=== PATIENT | male | born 1965 | race Caucasian/White ===

== ENCOUNTER 2018-04-10 07:31 | Day surgery (SDC) | payer BC, OTHER ==
[2018-04-09 17:32] VITALS: BMI 29.9
[2018-04-10] MEDS ORDERED: BUPIVACAINE HCL/PF 0.5% (5MG/ML) 10 ML VIAL ONE (09:16)
[2018-04-10] MEDS ORDERED: LIDOCAINE 1%/EPI 1:100000 (20 ML MULTI DOSE VIAL) ONE (09:18)
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
[2018-04-10] MEDS ORDERED: LIDOCAINE HCL/PF 2% SDV 5ML VIAL ONE (10:03)
[2018-04-10] MEDS ORDERED: PROPOFOL 20 ML ONE ×2 (10:03)
[2018-04-10] MEDS ORDERED: ceFAZolin SODIUM 1 GM VIAL IVPB ONE (10:13)
[2018-04-10] MEDS ORDERED: BUPIVACAINE HCL/PF (5 MG/ML) 30 ML VIAL IJ ONE (10:38)
[2018-04-10] MEDS ORDERED: MIDAZOLAM HCL 2 MG/2 ML SINGLE DOSE VIAL ONE (10:38)
[2018-04-10] MEDS ORDERED: ONDANSETRON 4 MG/2 ML VIAL IVPUSH PRN (10:49)
[2018-04-10] MEDS ORDERED: PROMETHAZINE HCL 25 MG/1 ML VIAL IVPUSH PRN (10:49)
[2018-04-10] MEDS ORDERED: oxyCODONE HCL 5 MG TABLET PO PRN (10:49)
--- NOTE | 2018-04-10 10:52 | OP ---
Operative Note - Note: Operative Date: 04/10/18 Pre-Operative Diagnosis: left knee pain, MM tear Operation: left knee arthroscopy, partial medial meniscectomy Post-Operative Diagnosis: Same as Pre-op Surgeon: Socrates Mukherjee Copy Worker: Ricky Hendrickson Anesthesiologist/SUPERVISOR SCRAP PREPARATION: Juanpablo Hernandez Anesthesia: General, Local Specimens Removed: shavings Estimated Blood Loss (mls): 0 Drains, Volume Out (mls): 0 Blood Volume Replaced (mls): 0 Fluid Volume Replaced (mls): 500 Operative Report Dictated: Yes
[2018-04-10] MEDS ORDERED: LACTATED RINGERS SOLUTION 1,000 ML IV SCH (11:00)
[2018-04-10] MEDS ORDERED: oxyCODONE HCL 5 MG TABLET ONE (11:58)
[2018-04-10 13:10] VITALS: BP 138/80; TEMP 98.5
[2018-04-10 13:21] VITALS: PULSE 89
--- NOTE | 2018-04-10 13:37 | OP ---
DATE OF OPERATION: 04/10/2018 PREOPERATIVE DIAGNOSIS: Left knee pain, medial meniscus tear. POSTOPERATIVE DIAGNOSIS: Left knee pain, medial meniscus tear. PROCEDURE: Left knee arthroscopy, partial medial meniscectomy. SURGEON: Lorraine Mukherjee MD OFFICE MAIL CLERK: Ricky Hendrickson MD ANESTHESIOLOGIST: Juanpablo Hernandez MD DRAINS: None. COMPLICATIONS: None. SPECIMEN: Arthroscopic shavings. BLOOD LOSS: Minimal. BLOOD GIVEN: None. FLUID REPLACEMENT: 500 mL. This patient is a 52-year-old male with a preoperative diagnosis of recurrent left knee pain and recurrent left knee medial meniscus tear. After understanding the potential risks and complications, alternatives, benefits, surgical versus nonsurgical treatment, the patient elected to undergo this procedure. The patient was brought to the operating room. Peripheral IV placed, IV sedation given. IV Ancef was given. LMA anesthesia was induced. His left lower extremity was put into the C-clamp leg selby with ample padding throughout including the Styrofoam rim. Limb was prepped and draped in sterile fashion, elevated, exsanguinated with Esmarch bandage, tourniquet inflated to 275 mmHg. A superior medial outflow portal was established. Lateral portal was established. Arthroscope was introduced into the joint. Under direct visualization the diagnostic left knee arthroscopy was performed. In the medial compartment, the patient's medial femoral condyle and medial tibial plateau both looked good. There was no arthritis. The patient did have a radial flap tear of the junction of the body posterior horn of the medial meniscus. It was probed. An additional part of the flap was able to be brought out into the joint and photographs were taken. Using a combination of the left biter forceps and the curved shaver, we did a partial medial meniscectomy. The tear did disrupt the vast majority of the hoop fibers, probably 85% as the tear went almost all the way to the periphery. Once the medial meniscectomy was completed, additional photographs were taken. Our attention turned to the intercondylar notch which looked good. The ACL was probed, it had the appropriate tension. Next, we looked at the lateral compartment. The patient had some grade 1 chondromalacia of the lateral femoral condyle. Photographs were taken. The patient was seen to have some fissuring and small cracking of the lateral tibial plateau. The patient also had what looked to be either evidence of a previous lateral meniscectomy or small meniscus in the area of the popliteal hiatus. Either way, no lateral meniscectomy was needed. Next, we attempted to return to the patellofemoral joint, which overall looked good. There were grade 1 changes of the femoral trochlea, but otherwise things looked good. The scope was irrigated and washed out , all excess saline removed. The arthroscopy portals were closed with 3-0 nylon sutures. The area was then washed and dried, covered with Xeroform, 4x4 gauze, Webril, Chris bandage. The tourniquet was taken down with a total tourniquet time of 18 minutes. There were no complications during the case. The patient tolerated the procedure quite well and was brought to the ambulatory recovery room in stable condition. Ricky Hendrickson MD dictating for MD LORRAINE Falk M.D. [id number]
--- NOTE | 2018-04-11 15:54 | PATH ---
Surgical Pathology Report Patient Name: SHASHANK MCKOY [facility]. Rec. #: [id number] /Age/Gender: 1965 (Age: 52) / M Account: [id number] Location: [facility] SURGICAL Taken: 04/10/2018 Received: 04/10/2018 Reported: 04/11/2018 Physicians: Jose Murray M.D. Specimen(s) Received LEFT KNEE SHAVINGS Clinical History Internal derangement left knee Final Diagnosis KNEE, LEFT, ARTHROSCOPIC SHAVINGS: FIBROSYNOVIAL TISSUE AND CARTILAGE. Electronically Signed Lou Alba M.D. Gross Description Received in formalin, labeled "left knee shavings," is a 4.0 x 3.0 x 0.3 cm. aggregate of levy-yellow soft tissue fragments. 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 /04/10/2018 saudi/04/10/2018
== END 2018-04-10 13:20 | disposition home or self-care (01) ==
LOC: JASU-SURG 07:31
PROVIDERS: ATTEND Orthopaedic Surgery
PROC: 0SBD4ZZ Excision of Left Knee Joint, Percutaneous Endoscopic Approach (ICD-10-PCS; principal; 2018-04-10 09:30)
DX: S83.242A Other tear of medial meniscus, current injury, left knee, initial encounter (principal); X58.XXXA Exposure to other specified factors, initial encounter; Y93.9 Activity, unspecified; Y92.9 Unspecified place or not applicable; Y99.9 Unspecified external cause status
CPT/HCPCS: 88304-TC; 94760; 97116-GP

== ENCOUNTER 2018-04-16 17:39 | Emergency (ER) | payer BC, OTHER ==
--- NOTE | 2018-04-16 18:05 | PDOC ---
Rapid Medical Evaluation Time Seen by Provider: 04/16/18 17:57 Medical Evaluation: Allergies Allergy/AdvReac Type Severity Reaction Status Date / Time No Known Allergies Allergy Verified 04/10/18 08:11 04/16/18 17:57 Pt. is a 52 y/o M who presents to the ED for redness and pain to his L leg. Pt s /p arthroscopic meniscus repair on the L side performed by Dr. Hendrickson. Took percocet with no relief of pain Exam: Redness and warm to L inner thigh, L posterior calf, L ankle. Swollen L ankle. Bruising vs cellulitis? Surgical site without redness or swelling Orders: Labs, IV insert, tylenol Pt to proceed to ED for further evaluation Discharge Disposition - Diagnosis Redness of skin - Referrals - Patient Instructions - Post Discharge Activity
[2018-04-16 18:06] VITALS: BMI 30.7
[2018-04-16] MEDS ORDERED: ACETAMINOPHEN 325 MG TABLET (FP) PO ONE (18:06)
[2018-04-16] MEDS ORDERED: ACETAMINOPHEN 325 MG TABLET (FP) ONE (18:30)
[2018-04-16 19:04] LABS: URINE APPEARANCE CLEAR; URINE BILIRUBIN NEGATIVE (<2.0 mg/dL); URINE COLOR YELLOW; URINE GLUCOSE (UA) NEGATIVE (NEGATIVE); URINE KETONE NEGATIVE (NEGATIVE); URINE LEUK ESTERASE NEGATIVE (NEGATIVE); URINE NITRITE NEGATIVE (NEGATIVE); URINE PROTEIN NEGATIVE (NEGATIVE)
[2018-04-16 19:08] LABS: BASO % 0.9 % (0-2.0); EOS % 2.8 % (0-4.5); HEMATOCRIT 53.7 % (35.4-49); HEMOGLOBIN 17.7 GM/dL (11.7-16.9); LYMPH % 24.6 % (8-40); MCHC 32.9 g/dl (32.0-35.9); MEAN PLT VOLUME 9.5 fl (7.5-11.1); MONO % 12.4 % (3.8-10.2); NEUT % 59.3 % (42.8-82.8); PLATELET COUNT 275 K/MM3 (134-434); RDW 15.3 % (11.9-15.9); WHITE BLOOD COUNT 8.4 K/mm3 (4.0-10.0)
[2018-04-16 19:09] LABS: EPI CELLS RARE /HPF (FEW); URINE MUCUS RARE
[2018-04-16 19:24] LABS: INR 0.99 (0.82-1.09); PROTHROMBIN TIME (PATIENT) 11.2 SEC (9.7-13.0)
--- NOTE | 2018-04-16 19:28 | PDOC ---
History of Present Illness - General Chief Complaint: Pain, Acute Stated Complaint: PAIN Time Seen by Provider: 04/16/18 17:57 History Source: Patient - History of Present Illness Initial Comments: 04/16/18 20:12 52 year old male Status post left knee arthroscopy on 04/10/18. 3 days after surgery patient noted to have ecchymosis to left upper thigh and lower leg with increasing edema. Patient reports that the knee pain has gotten worse over the course of days. Patient has been taking Percocet, currently with minimal relief in pain. Patient is an orthopedic appointment days. Currently not on physical therapy. denies numbness and tingling in the lower extremity. 04/16/18 20:51 Past History - Past Medical History Allergies/Adverse Reactions: Allergies Allergy/AdvReac Type Severity Reaction Status Date / Time No Known Allergies Allergy Verified 04/16/18 18:01 Home Medications: Ambulatory Orders Sildenafil Citrate [Viagra] 50 mg PO DAILY PRN 04/09/18 Hydrocodone/Acetaminophen [[place] 5-325 Tablet] 1 each PO Q6H PRN #20 tablet MDD 4 04/10/18 Anemia: No Asthma: Yes (DX CHILD, seasonal) Cancer: No Cardiac Disorders: No CVA: No COPD: No CHF: No Dementia: No Diabetes: No GI Disorders: Yes (PANCREATITIS-CHRONIC) Disorders: No HTN: No Hypercholesterolemia: Yes (DX- 2013) Liver Disease: No Seizures: No Thyroid Disease: No - Surgical History Abdominal Surgery: No Appendectomy: No Cardiac Surgery: No Cholecystectomy: No Lung Surgery: No Neurologic Surgery: No Orthopedic Surgery: Yes (BILATERAL KNEE ARTHROSCOPY-1996) - Immunization History Td Vaccination: Yes Immunization Up to Date: Yes - Suicide/Smoking/Psychosocial Hx Smoking Status: Yes Smoking History: Never smoked Years of Tobacco Use: 0 Have you smoked in the past 12 months: No Number of Cigarettes Smoked Daily: 0 If you are a former smoker, when did you quit?: 2006 Cigars Per Day: 0 Information on smoking cessation initiated: No Hx Alcohol Use: No Drug/Substance Use Hx: No Substance Use Type: None Hx Substance Use Treatment: No Review of Systems - Review of Systems Able to Perform ROS?: Yes Is the patient limited Filipino proficient: No Integumentary: Yes: Bruising (31and), Other (edema) *Physical Exam - Vital Signs Last Vital Signs Temp Pulse Resp BP Pulse Ox 98.6 F 99 H 17 165/87 97 04/16/18 18:02 04/16/18 18:02 04/16/18 18:02 04/16/18 18:02 04/16/18 18:02 - Physical Exam General Appearance: Yes: Appropriately Dressed Respiratory/Chest: positive: Lungs Clear, Normal Breath Sounds Extremity: positive: Pedal Edema (left lower extremity extensive ecchymosis with lower extremity edema. surgical site clean and intact), Other (+ peda1l pulse) Integumentary: positive: Normal Color, Warm Neurologic: positive: Fully Oriented, Alert ED Treatment Course - LABORATORY CBC & Chemistry Diagram: 04/16/18 18:39 04/16/18 18:39 - ADDITIONAL ORDERS Additional order review: Laboratory Results 04/16/18 18:20 Urine Color Yellow Urine Appearance Clear Urine pH 6.0 Ur Specific [place] 1.023 Urine Protein Negative Urine Glucose (UA) Negative Urine Ketones Negative Urine Blood 1+ H Urine Nitrite Negative Urine Bilirubin Negative Urine Urobilinogen 2.0 Ur Leukocyte Esterase Negative Urine WBC (Auto) 1 Urine RBC (Auto) 3 Ur Epithelial Cells Rare Urine Mucus Rare 04/16/18 18:39 RBC 6.10 H MCV 88.0 MCHC 32.9 RDW 15.3 D MPV 9.5 Neutrophils % 59.3 Lymphocytes % 24.6 D Monocytes % 12.4 H Eosinophils % 2.8 Basophils % 0.9 - Medications Given in the ED: ED Medications Discontinued Medications Generic Name Dose Route Start Last Admin Trade Name Freq PRN Reason Stop Dose Admin Acetaminophen 975 mg 04/16/18 18:06 04/16/18 18:32 Tylenol - PO 04/16/18 18:07 975 mg ONCE ONE Administration Progress Note - Progress Note Progress Note: A: Left knee post surgical pain P: US: negative for DVT pain control labs outpatient ortho follow up *DC/Admit/Observation/Transfer Diagnosis at time of Disposition: Traumatic ecchymosis of knee Qualifiers: Encounter type: initial encounter Laterality: left Qualified Code(s): S80.02XA - Contusion of left knee, initial encounter Knee pain, acute Qualifiers: Laterality: left Qualified Code(s): M25.562 - Pain in left knee - Discharge Dispostion Disposition: HOME - Referrals Referrals: Melinda Cabral MD [Primary Care Provider] - Socrates Mukherjee MD [Staff Physician] - Call tomorrow - Patient Instructions Additional Instructions: apply ice/ heat to the Area take percocet as prescribed. follow up with Dr. Mukherjee tomorrow. - Post Discharge Activity Forms/Work/School Notes: Back to Work
[2018-04-16 19:35] LABS: ALBUMIN 4.1 g/dl (3.4-5.0); ALK PHOS 80 U/L (45-117); ANION GAP 9 (8-16); BILIRUBIN,TOTAL 0.7 mg/dL (0.2-1.0); BLOOD UREA NITROGEN 20 mg/dL (7-18); CALCIUM 9.3 mg/dL (8.5-10.1); CHLORIDE 104 mmol/L (98-107); CO2 26 mmol/L (21-32); CREATININE 1.8 mg/dL (0.7-1.3); GLUCOSE,RANDOM 75 mg/dL (74-106); SGPT/ALT 42 U/L (12-78); SODIUM 139 mmol/L (136-145)
[2018-04-16 19:38] LABS: POTASSIUM 4.7 mmol/L (3.5-5.1); SGOT/AST 54 U/L (15-37)
[2018-04-16] MEDS ORDERED: KETOROLAC TROMETHAMINE 30 MG/1 ML VIAL IM ONE (20:04)
[2018-04-16] MEDS ORDERED: KETOROLAC TROMETHAMINE 30 MG/1 ML VIAL ONE (20:05)
--- NOTE | 2018-04-16 20:07 | PDOC ---
*Physical Exam - Vital Signs Last Vital Signs Temp Pulse Resp BP Pulse Ox 98.6 F 99 H 17 165/87 97 04/16/18 18:02 04/16/18 18:02 04/16/18 18:02 04/16/18 18:02 04/16/18 18:02 ED Treatment Course - LABORATORY CBC & Chemistry Diagram: 04/16/18 18:39 04/16/18 18:39 - ADDITIONAL ORDERS Additional order review: Laboratory Results 04/16/18 04/16/18 18:39 18:20 Sodium 139 Potassium 4.7 Chloride 104 Carbon Dioxide 26 Anion Gap 9 BUN 20 H Creatinine 1.8 H Creat Clearance w eGFR 39.52 Random Glucose 75 D Calcium 9.3 Total Bilirubin 0.7 AST 54 H D ALT 42 D Alkaline Phosphatase 80 Total Protein 8.0 Albumin 4.1 Urine Color Yellow Urine Appearance Clear Urine pH 6.0 Ur Specific [place] 1.023 Urine Protein Negative Urine Glucose (UA) Negative Urine Ketones Negative Urine Blood 1+ H Urine Nitrite Negative Urine Bilirubin Negative Urine Urobilinogen 2.0 Ur Leukocyte Esterase Negative Urine WBC (Auto) 1 Urine RBC (Auto) 3 Ur Epithelial Cells Rare Urine Mucus Rare 04/16/18 18:39 RBC 6.10 H MCV 88.0 MCHC 32.9 RDW 15.3 D MPV 9.5 Neutrophils % 59.3 Lymphocytes % 24.6 D Monocytes % 12.4 H Eosinophils % 2.8 Basophils % 0.9 - RADIOLOGY Radiology Studies Ordered: Category Date Time Status DUPLEX VASCUL US-1 LEG [US] Stat Ultrasound 04/16/18 19:20 Completed - Medications Given in the ED: ED Medications Discontinued Medications Generic Name Dose Route Start Last Admin Trade Name Epi PRN Reason Stop Dose Admin Acetaminophen 975 mg 04/16/18 18:06 04/16/18 18:32 Tylenol - PO 04/16/18 18:07 975 mg ONCE ONE Administration Medical Decision Making - Medical Decision Making 04/16/18 20:07 agree with care from JOHNNY Aguilar *DC/Admit/Observation/Transfer Diagnosis at time of Disposition: Redness of skin - Referrals Referrals: Melinda Cabral MD [Primary Care Provider] - - Patient Instructions - Post Discharge Activity
[2018-04-16] MEDS ORDERED: CODEINE SO4 30 MG TABLET PO ONE (20:12)
[2018-04-16] MEDS ORDERED: KETOROLAC TROMETHAMINE 30 MG/1 ML VIAL IVPUSH ONE (20:13)
[2018-04-16] MEDS ORDERED: CODEINE SO4 30 MG TABLET ONE (20:25)
[2018-04-16 21:02] VITALS: BP 149/89; PULSE 87; TEMP 98.9
== END 2018-04-16 21:00 | disposition home or self-care (01) ==
LOC: JER 17:39
PROC: 3E0333Z Introduction of Anti-inflammatory into Peripheral Vein, Percutaneous Approach (ICD-10-PCS; principal; 2018-04-16)
DX: M25.562 Pain in left knee (principal); S80.02XA Contusion of left knee, initial encounter; Z87.891 Personal history of nicotine dependence; J45.909 Unspecified asthma, uncomplicated; E78.00 Pure hypercholesterolemia, unspecified
CPT/HCPCS: 36415; 80053; 81003; 81015; 85025; 85610; 87040; 93971-TC; 99284-25

== ENCOUNTER 2019-04-04 12:53 | Emergency (ER) | payer BC, OTHER | END 2019-04-04 15:24 | disposition home or self-care (01) | LOC: JERFT 12:53 ==

== ENCOUNTER 2019-09-25 13:47 | Emergency (ER) | payer BC, OTHER ==
[2019-09-25 14:05] VITALS: BP 135/84; PULSE 79; TEMP 99.1; BMI 30.4
[2019-09-25] MEDS ORDERED: predniSONE 20 MG TABLET (UD) PO ONE (14:28)
[2019-09-25] MEDS ORDERED: ALBUTEROL SO4 2.5/IPRATROPIUM 0.5 INH SOL 3 ML VIAL.NEB. NEB SCH (14:30)
--- NOTE | 2019-09-25 14:30 | PDOC ---
History of Present Illness - General Chief Complaint: Asthma Stated Complaint: ASTHMA Time Seen by Provider: 09/25/19 14:07 History Source: Patient Exam Limitations: No Limitations Past History - Past Medical History Allergies/Adverse Reactions: Allergies Allergy/AdvReac Type Severity Reaction Status Date / Time No Known Allergies Allergy Verified 09/25/19 14:01 Home Medications: Ambulatory Orders Sildenafil Citrate [Viagra] 50 mg PO DAILY PRN 04/09/18 Hydrocodone/Acetaminophen [[place] 5-325 Tablet] 1 each PO Q6H PRN #20 tablet MDD 4 04/10/18 Albuterol 0.083% Nebulizer Kimber [Ventolin 0.083% Nebulizer Soln -] 1 neb NEB Q4H PRN #30 vial 04/04/19 Nebulizer Accessories [Aeroneb Go] 1 each MC DAILY #1 each 04/04/19 Nebulizer [Aeroneb Go Nebulizer] 1 each MC DAILY #1 each 04/04/19 predniSONE [Deltasone] 40 mg PO DAILY #8 tablet 04/04/19 Albuterol 0.083% Nebulizer Kimber [Ventolin 0.083% Nebulizer Soln -] 1 neb NEB Q4H PRN #30 vial 09/25/19 Albuterol Sulfate Inhaler - [Ventolin HFA Inhaler -] 1 - 2 inh PO Q4H #1 inhaler 09/25/19 predniSONE [Deltasone -] 40 mg PO DAILY #8 tablet 09/25/19 Anemia: No Asthma: Yes (DX CHILD, seasonal) Cancer: No Cardiac Disorders: No CVA: No COPD: No CHF: No Dementia: No Diabetes: No GI Disorders: Yes (PANCREATITIS-CHRONIC) Disorders: No HTN: No Hypercholesterolemia: Yes (- 2013) Liver Disease: No Seizures: No Thyroid Disease: No - Surgical History Abdominal Surgery: No Appendectomy: No Cardiac Surgery: No Cholecystectomy: No Lung Surgery: No Neurologic Surgery: No Orthopedic Surgery: Yes (BILATERAL KNEE ARTHROSCOPY-1996) - Immunization History Td Vaccination: Yes Immunization Up to Date: Yes - Psycho Social/Smoking Cessation Hx Smoking Status: Yes Smoking History: Never smoked Years of Tobacco Use: 0 Have you smoked in the past 12 months: No Number of Cigarettes Smoked Daily: 0 If you are a former smoker, when did you quit?: 2005 Cigars Per Day: 0 Hx Alcohol Use: Yes Drug/Substance Use Hx: No Substance Use Type: None Hx Substance Use Treatment: No *Physical Exam - Vital Signs Last Vital Signs Temp Pulse Resp BP Pulse Ox 99.1 F 79 22 H 135/84 98 09/25/19 14:02 09/25/19 14:02 09/25/19 14:02 09/25/19 14:02 09/25/19 14:02 - Physical Exam General Appearance: No: Apparent Distress Respiratory/Chest: positive: Wheezing (B/L). negative: Respiratory Distress, Accessory Muscle Use, Labored Respiration Cardiovascular: positive: Regular Rhythm, Regular Rate, S1, S2. negative: Murmur Integumentary: positive: Normal Color Neurologic: positive: Alert Medical Decision Making - Medical Decision Making 53 y/o M with hx of asthma (never intubated, hospitalized once), HLD, pancreatitis presents with asthma exacerbation from 6 days ago. +dry cough, sob , chest tightness, wheezing. Ran out of his inhaler 2 days ago and could not come earlier due to work and other things he got caught up with. Also had a new nebulizer machine he bought a few months ago, but states his dog broke it accidentally around a month ago. States this feels like his typical asthma and usually gets precipitated from changes in weather. Also mentions subjective fever from yesterday, but did not check temperature. Took Tylenol this AM. Denies ear pain, throat pain, congestion, rhinorrhea, abd pain, n/v. Denies smoking cigarettes. Asthma exacerbation Plan: Duonebs, steroids, CXR 09/25/19 14:34 CXR negative Patient feeling much better on reassessment No wheezing noted on repeat exam, Stable for dc 09/25/19 15:52 Discharge - Discharge Information Problems reviewed: Yes Clinical Impression/Diagnosis: Asthma Qualifiers: Asthma severity: mild Asthma persistence: unspecified Asthma complication type : with acute exacerbation Qualified Code(s): J45.901 - Unspecified asthma with ( acute) exacerbation Condition: Improved Disposition: HOME - Admission No - Additional Discharge Information Prescriptions: Albuterol 0.083% Nebulizer Kimber [Ventolin 0.083% Nebulizer Soln -] 1 neb NEB Q4H PRN #30 vial PRN Reason: Shortness Of Breath Albuterol Sulfate Inhaler - [Ventolin HFA Inhaler -] 1 - 2 inh PO Q4H #1 inhaler predniSONE [Deltasone -] 40 mg PO DAILY #8 tablet Prescription Drug Monitoring Program (I-STOP) results: I-STOP not reviewed - Follow up/Referral Referrals: Melinda Cabral MD [Primary Care Provider] - 2 Days - Patient Discharge Instructions Patient Printed Discharge Instructions: DI for Asthma -- Adult Additional Instructions: Thank you for choosing [facility]. It was a pleasure taking care of you. Use the albuterol as needed for shortness of breath Take the steroids as prescribed (next dose is tomorrow) Follow-up with your doctor in 2 days Return to the Emergency Department if your symptoms worsen or persist or have other concerning symptoms. - Post Discharge Activity Work/Back to School Note: Back to Work
[2019-09-25] MEDS ORDERED: predniSONE 20 MG TABLET (UD) ONE (14:33)
[2019-09-25] MEDS ORDERED: ALBUTEROL SO4 2.5/IPRATROPIUM 0.5 INH SOL 3 ML VIAL.NEB. NEB ONE (15:33)
== END 2019-09-25 16:02 | disposition home or self-care (01) ==
LOC: JERFT 13:47
PROC: 3E0F7GC Introduction of Other Therapeutic Substance into Respiratory Tract, Via Natural or Artificial Opening (ICD-10-PCS; principal; 2019-09-25)
DX: J45.901 Unspecified asthma with (acute) exacerbation (principal); Z87.891 Personal history of nicotine dependence; K86.1 Other chronic pancreatitis; E78.00 Pure hypercholesterolemia, unspecified
CPT/HCPCS: 71046-TC-FY; 99281-25

== ENCOUNTER 2020-11-25 05:47 | Day surgery (SDC) | payer BC, OTHER ==
[2020-11-22 09:32] VITALS: BMI 28.8
[2020-11-25] MEDS ORDERED: LIDOCAINE 1%/EPI 1:100000 (20 ML MULTI DOSE VIAL) ONE (07:09)
[2020-11-25] MEDS ORDERED: PROPOFOL 20 ML ONE ×2 (07:38)
[2020-11-25] MEDS ORDERED: LIDOCAINE HCL/PF 2% SDV 5ML VIAL ONE (07:38)
[2020-11-25] MEDS ORDERED: MIDAZOLAM HCL 2 MG/2 ML SINGLE DOSE VIAL ONE (07:38)
[2020-11-25] MEDS ORDERED: fentaNYL CITRATE 250 MCG/5 ML VIAL ONE (07:38)
[2020-11-25] MEDS ORDERED: ceFAZolin SODIUM 1 GM VIAL ONE (08:20)
[2020-11-25] MEDS ORDERED: BUPIVACAINE HCL/PF 0.5% (5 MG/ML) 30 ML VIAL IJ ONE (08:53)
[2020-11-25] MEDS ORDERED: IBUPROFEN 800 MG/8 ML IJ IVPB PRN (09:09)
[2020-11-25] MEDS ORDERED: ONDANSETRON 4 MG/2 ML VIAL IVPUSH PRN (09:09)
[2020-11-25] MEDS ORDERED: oxyCODONE HCL 5 MG TABLET PO PRN (09:09)
[2020-11-25] MEDS ORDERED: LACTATED RINGERS SOLUTION 1,000 ML IV SCH (09:15)
[2020-11-25 10:45] VITALS: TEMP 98.5
[2020-11-25 11:49] VITALS: BP 119/68; PULSE 84
== END 2020-11-25 11:10 | disposition home or self-care (01) ==
LOC: FASU 05:47
PROVIDERS: ATTEND Orthopaedic Surgery
PROC: 0SBC4ZZ Excision of Right Knee Joint, Percutaneous Endoscopic Approach (ICD-10-PCS; principal; 2020-11-25 08:33)
DX: S83.241A Other tear of medial meniscus, current injury, right knee, initial encounter (principal); X58.XXXA Exposure to other specified factors, initial encounter; Y93.9 Activity, unspecified; Y92.9 Unspecified place or not applicable
CPT/HCPCS: 88304-TC; 94760

== ENCOUNTER 2021-09-29 05:56 | Day surgery (SDC) | payer BC, OTHER ==
[2021-09-28 12:10] VITALS: BMI 29.1
[2021-09-29] MEDS ORDERED: MIDAZOLAM HCL 2 MG/2 ML SINGLE DOSE VIAL ONE (06:55)
[2021-09-29] MEDS ORDERED: ROPIVACAINE HCL/PF 100 MG/20 ML VIAL ONE (06:55)
[2021-09-29] MEDS ORDERED: LIDOCAINE HCL/PF 2% SDV 5ML VIAL ONE (07:32)
[2021-09-29] MEDS ORDERED: PROPOFOL 20 ML ONE (07:32)
[2021-09-29] MEDS ORDERED: GLYCOPYRROLATE 0.2 MG/1 ML VIAL ONE (07:32)
[2021-09-29] MEDS ORDERED: ceFAZolin SODIUM 1 GM VIAL ONE (07:35)
[2021-09-29] MEDS ORDERED: SODIUM CHLORIDE 0.9% P/F 10 ML VIAL IJ ONE (07:35)
[2021-09-29] MEDS ORDERED: ONDANSETRON 4 MG/2 ML VIAL ONE (08:12)
[2021-09-29] MEDS ORDERED: DEXAMETHASONE SOD PHOSPHATE 4 MG/1 ML VIAL ONE (08:12)
[2021-09-29] MEDS ORDERED: PROMETHAZINE HCL 25 MG/1 ML VIAL IVPUSH PRN (09:47)
[2021-09-29] MEDS ORDERED: oxyCODONE HCL 5 MG TABLET PO PRN (09:47)
[2021-09-29] MEDS ORDERED: ONDANSETRON 4 MG/2 ML VIAL IVPUSH PRN (09:47)
[2021-09-29] MEDS ORDERED: LACTATED RINGERS SOLUTION 1,000 ML IV SCH (10:00)
[2021-09-29 11:58] VITALS: TEMP 98.2
[2021-09-29 12:04] VITALS: BP 133/81; PULSE 72
== END 2021-09-29 12:15 | disposition home or self-care (01) ==
LOC: FASU 05:56
PROVIDERS: ATTEND Orthopaedic Surgery
PROC: 0LQ10ZZ Repair Right Shoulder Tendon, Open Approach (ICD-10-PCS; principal; 2021-09-29 08:22)
PROC: 0RQJ4ZZ Repair Right Shoulder Joint, Percutaneous Endoscopic Approach (ICD-10-PCS; 2021-09-29 08:22)
PROC: 0RNJ4ZZ Release Right Shoulder Joint, Percutaneous Endoscopic Approach (ICD-10-PCS; 2021-09-29 08:22)
DX: M75.121 Complete rotator cuff tear or rupture of right shoulder, not specified as traumatic (principal); M75.41 Impingement syndrome of right shoulder; M24.111 Other articular cartilage disorders, right shoulder; M25.511 Pain in right shoulder
CPT/HCPCS: 94760

== ENCOUNTER 2022-08-21 04:50 | Emergency (ER) | payer BC, OTHER ==
[2022-08-21] MEDS ORDERED: KETOROLAC TROMETHAMINE 15 MG/ML VIAL IM ONE (05:09)
[2022-08-21 05:21] VITALS: BP 113/63; PULSE 95; RESP 20; TEMP 99.9; BMI 30.4
[2022-08-21] MEDS ORDERED: KETOROLAC TROMETHAMINE 15 MG/ML VIAL ONE (05:30)
== END 2022-08-21 06:38 | disposition home or self-care (01) ==
LOC: JER 04:50
PROC: 3E0233Z Introduction of Anti-inflammatory into Muscle, Percutaneous Approach (ICD-10-PCS; principal; 2022-08-21)
DX: R05.1 Acute cough (principal); M79.10 Myalgia, unspecified site; J06.9 Acute upper respiratory infection, unspecified
CPT/HCPCS: 0241U-QW; 71046-TC-FY; 99284-25

== ENCOUNTER 2022-08-26 06:04 | Emergency (ER) | payer BC, OTHER ==
[2022-08-26 06:10] VITALS: BP 132/82; PULSE 73; RESP 22; TEMP 98.4; BMI 30.7
[2022-08-26] MEDS ORDERED: DEXAMETHASONE SOD PHOSPHATE 10 MG/1 ML VIAL IVPUSH ONE (07:19)
[2022-08-26] MEDS ORDERED: predniSONE 20 MG TABLET (UD) PO ONE (07:24)
[2022-08-26] MEDS ORDERED: predniSONE 20 MG TABLET (UD) ONE (07:31)
[2022-08-26] MEDS: ALBUTEROL SO4 2.5/IPRATROPIUM 0.5 INH SOL 3 ML VIAL.NEB. NEB SCH (08:13)
== END 2022-08-26 08:00 | disposition home or self-care (01) ==
LOC: JER 06:04
PROC: 3E0F7GC Introduction of Other Therapeutic Substance into Respiratory Tract, Via Natural or Artificial Opening (ICD-10-PCS; principal; 2022-08-26)
DX: J45.901 Unspecified asthma with (acute) exacerbation (principal)
CPT/HCPCS: 99283-25

== ENCOUNTER 2023-10-22 19:39 | Emergency (ER) | payer BC, OTHER ==
[2023-10-22] MEDS ORDERED: ASPIRIN 81 MG CHEWABLE TABLETS PO ONE (19:48)
[2023-10-22 19:53] VITALS: PULSE 72; BMI 29.1
[2023-10-22] MEDS ORDERED: ASPIRIN 81 MG CHEWABLE TABLETS ONE (20:26)
[2023-10-22] MEDS ORDERED: ACETAMINOPHEN 1000 MG/100 ML BAG IVPB ONE (20:27)
[2023-10-22 20:47] LABS: BASO % 0.8 % (0-2.0); EOS % 6.9 % (0-4.5); HEMATOCRIT 52.1 % (35.4-49); HEMOGLOBIN 16.4 GM/dL (11.7-16.9); LYMPH % 28.6 % (8-40); MCH 26.9 pg (25.7-33.7); MCHC 31.5 g/dl (32.0-35.9); MEAN CELL VOLUME 85.5 fl (80-96); MEAN PLT VOLUME 8.4 fl (7.5-11.1); MONO % 10.5 % (3.8-10.2); NEUT % 53.2 % (42.8-82.8); PLATELET COUNT 283 10^3/uL (134-434); RBC 6.09 M/mm3 (4.00-5.60); RDW 16.5 % (11.9-15.9); WHITE BLOOD COUNT 8.5 K/mm3 (4.0-10.0)
[2023-10-22] MEDS ORDERED: ACETAMINOPHEN INJECTION 100 ML IVPB ONE (20:48)
[2023-10-22] MEDS ORDERED: ALBUTEROL SO4 2.5/IPRATROPIUM 0.5 INH SOL 3 ML VIAL.NEB. NEB ONE (20:48)
[2023-10-22 20:57] LABS: INR 0.95 (0.83-1.09)
[2023-10-22] MEDS: ALBUTEROL SO4 2.5/IPRATROPIUM 0.5 INH SOL 3 ML VIAL.NEB. NEB SCH ×3 (20:58→21:15)
[2023-10-22 21:00] LABS: ACTIVATED PTT 27.2 SECONDS (25.2-36.5)
[2023-10-22 21:10] LABS: POTASSIUM 5.8 mmol/L (3.5-5.1)
[2023-10-22 21:11] LABS: CALCIUM 9.6 mg/dL (8.5-10.1)
[2023-10-22 21:12] LABS: ALBUMIN 3.1 g/dl (3.4-5.0); MAGNESIUM 2.1 mg/dL (1.8-2.4)
[2023-10-22 21:15] LABS: CREATININE 1.5 mg/dL (0.55-1.3)
[2023-10-22 21:16] LABS: BILIRUBIN,TOTAL 0.6 mg/dL (0.2-1); TOT PROT 7.1 g/dl (6.4-8.2)
[2023-10-22] MEDS ORDERED: SODIUM CHLORIDE 0.9% 500 ML INFUS.BAG IV ONE (22:15)
[2023-10-22] MEDS ORDERED: FAMOTIDINE 20 MG/50 ML IVPB 20 MG/50 ML MG IVPB ONE (22:15)
[2023-10-22 23:37] LABS: POTASSIUM 3.9 mmol/L (3.5-5.1)
[2023-10-23 00:56] LABS: CALCIUM 9.5 mg/dL (8.5-10.1)
[2023-10-23 00:57] LABS: BLOOD UREA NITROGEN 14.8 mg/dL (7-18)
[2023-10-23 01:00] LABS: CREATININE 1.5 mg/dL (0.55-1.3)
[2023-10-23 01:36] VITALS: BP 140/80; RESP 16; TEMP 98.9
== END 2023-10-23 01:52 | disposition left against medical advice (07) ==
LOC: JER 19:39
PROC: 3E033GC Introduction of Other Therapeutic Substance into Peripheral Vein, Percutaneous Approach (ICD-10-PCS; principal; 2023-10-22)
PROC: 3E033NZ Introduction of Analgesics, Hypnotics, Sedatives into Peripheral Vein, Percutaneous Approach (ICD-10-PCS; 2023-10-22)
PROC: 3E0F7GC Introduction of Other Therapeutic Substance into Respiratory Tract, Via Natural or Artificial Opening (ICD-10-PCS; 2023-10-22)
DX: R07.9 Chest pain, unspecified (principal); R06.2 Wheezing
CPT/HCPCS: 36415; 71045-TC-FY; 80048; 80053; 82550; 82553; 83735; 84484; 85025; 85379; 85610; 85730; 93005; 93010; 99285-25

== ENCOUNTER 2024-02-09 08:53 | Emergency (ER) | payer BC, OTHER ==
[2024-02-09 09:05] VITALS: RESP 18; BMI 28.6
[2024-02-09] MEDS: LACTATED RINGERS SOLUTION 1000 ML INFUS.BAG IV ONE (10:00)
[2024-02-09 10:07] LABS: BASO % 0.5 % (0-2.0); EOS % 3.5 % (0-4.5); HEMATOCRIT 56.8 % (35.4-49); HEMOGLOBIN 18.6 GM/dL (11.7-16.9); LYMPH % 16.5 % (8-40); MCH 28.7 pg (25.7-33.7); MCHC 32.8 g/dl (32.0-35.9); MEAN CELL VOLUME 87.5 fl (80-96); MEAN PLT VOLUME 8.6 fl (7.5-11.1); MONO % 9.9 % (3.8-10.2); NEUT % 69.6 % (42.8-82.8); PLATELET COUNT 218 10^3/uL (134-434); RBC 6.49 M/mm3 (4.00-5.60); RDW 16.4 % (11.9-15.9); WHITE BLOOD COUNT 5.7 K/mm3 (4.0-10.0)
[2024-02-09 10:23] LABS: POTASSIUM 4.9 mmol/L (3.5-5.1)
[2024-02-09 10:25] LABS: CALCIUM 8.9 mg/dL (8.5-10.1)
[2024-02-09 10:26] LABS: ALBUMIN 3.6 g/dl (3.4-5.0); BLOOD UREA NITROGEN 13.2 mg/dL (7-18)
[2024-02-09 10:29] LABS: CREATININE 1.3 mg/dL (0.55-1.3)
[2024-02-09 10:30] LABS: BILIRUBIN,TOTAL 0.7 mg/dL (0.2-1); TOT PROT 7.2 g/dl (6.4-8.2)
[2024-02-09 12:17] VITALS: BP 123/87; PULSE 80; TEMP 97.9
== END 2024-02-09 12:32 | disposition home or self-care (01) ==
LOC: JER 08:53
DX: R19.7 Diarrhea, unspecified (principal); R63.0 Anorexia; R53.1 Weakness; R50.9 Fever, unspecified; Z20.822 Contact with and (suspected) exposure to COVID-19
CPT/HCPCS: 0241U-QW; 36415; 80053; 83690; 83735; 85025; 93005; 93010; 99284-25